=== PATIENT | male | born 1975 | race Caucasian/White ===

== ENCOUNTER 2017-10-17 08:23 | Inpatient (IN) | payer MEDICAID ==
[~2017-10-17 08:23] MED LIST: cefOXitin 2 GM Vial ONE
[2017-10-17] MEDS ORDERED: Scopolamine 1.5 MG Transdermal Patch TOP SCH (08:45)
[2017-10-17] MEDS ORDERED: Acetaminophen 500 MG Tab PO ONE (08:45)
[2017-10-17] MEDS ORDERED: Gabapentin 300 MG Cap PO ONE (08:45)
[2017-10-17] MEDS ORDERED: Celecoxib 200 MG Cap PO ONE (08:45)
[2017-10-17] MEDS ORDERED: Dextrose 5%-Lactated Ringers 1,000 ML IV SCH (09:15)
[2017-10-17] MEDS ORDERED: Albuterol/Ipratropium 3.0-0.5 MG/3 ML Neb Soln NEB ONE (09:45)
[2017-10-17] MEDS ORDERED: Propofol 200 MG/20 ML SDV ONE ×2 (11:29→13:23)
[2017-10-17] MEDS ORDERED: Midazolam 1 MG/ML 2 ML SDV ONE (11:29)
[2017-10-17] MEDS ORDERED: Ondansetron 4 MG/2 ML SDV ONE (11:29)
[2017-10-17] MEDS ORDERED: Dexamethasone 4 MG/ML SDV ONE (11:29)
[2017-10-17] MEDS ORDERED: Rocuronium 50 MG/5 ML Vial ONE ×2 (11:29→13:37)
[2017-10-17] MEDS ORDERED: Glycopyrrolate 0.2 MG/ML 5 ML MDV ONE (11:29)
[2017-10-17] MEDS ORDERED: Succinylcholine 200 MG/10 ML MDV ONE (11:29)
[2017-10-17] MEDS ORDERED: Neostigmine Methylsulfate 1 MG/ML 5 ML Syringe ONE (11:29)
[2017-10-17] MEDS ORDERED: Lidocaine 2% 100 MG/5 ML Syringe IVPUSH ONE (11:30)
[2017-10-17] MEDS ORDERED: Ketamine 500 MG/5 ML MDV IV SCH (11:30)
[2017-10-17] MEDS ORDERED: Ropivacaine 60 ML, Dexamethasone 8 MG, EPINEPHrine 0.4 MG, Sodium Chloride 0.9% 17.6 ML NERVRT SCH ×4 (11:30)
[2017-10-17] MEDS ORDERED: Lactated Ringers 1,000 ML ONE ×2 (11:37→14:34)
[2017-10-17] MEDS: cefOXitin 2 GM in Premix Bag 1 BAG IV ONE ×2 (13:01→17:08)
[2017-10-17] MEDS ORDERED: fentaNYL 250 MCG/5 ML SDV ONE (13:58)
[2017-10-17] MEDS: Coagulation Factor VIIa Recombinant (per MCG) 2 MG Vial IVPUSH ONE ×2 (15:17→17:21)
[2017-10-17] MEDS ORDERED: Naloxone 0.4 MG/ML SDV ONE (15:29)
[2017-10-17] MEDS: Insulin Aspart 100 Units/ML 3 ML Pen SUBCUT PRN ×2 (15:57→21:33)
[2017-10-17] MEDS ORDERED: Labetalol 20 MG/4 ML Syringe IVPUSH PRN (16:00)
[2017-10-17] MEDS ORDERED: Metoclopramide 10 MG/2 ML SDV IVPUSH PRN (16:00)
[2017-10-17] MEDS ORDERED: Glucagon,Human Recombinant 1 MG Vial IM PRN (16:00)
[2017-10-17] MEDS ORDERED: 50% Dextrose in Water 50 ML Syringe IVPUSH PRN (16:00)
[2017-10-17] MEDS ORDERED: diphenhydrAMINE 50 MG/ML SDV IVPUSH PRN (16:00)
[2017-10-17] MEDS ORDERED: Albuterol/Ipratropium 3.0-0.5 MG/3 ML Neb Soln INH PRN (16:00)
[2017-10-17] MEDS ORDERED: Ondansetron 4 MG/2 ML SDV IVPUSH PRN (16:00)
[2017-10-17] MEDS: Lidocaine 0.4%/D5W 2 GM/500 ML BAG IV SCH (17:08)
[2017-10-17] MEDS: Pantoprazole 40 MG Vial IVPUSH SCH (17:32)
[2017-10-17] MEDS: Acetaminophen Soln 650 MG/20.3 ML UD Cup PO SCH (17:34)
[2017-10-17] MEDS ORDERED: MVI, Adult with Vitamin K 10 ML, Thiamine 200 MG, Chromium/Copper/Mang/Selen/Zn 1 ML in... IV SCH ×4 (18:00)
[2017-10-17] MEDS: cefOXitin 2 GM in Sodium Chloride 0.9% 50 ML IV SCH (19:32)
[2017-10-17] MEDS: hydrOXYzine HCl 100 MG/2 ML SDV IM PRN (19:32)
[2017-10-17] MEDS ORDERED: Insulin Detemir 100 Units/ML 3 ML Pen SUBCUT ONE (21:00)
[2017-10-17] MEDS: Heparin Sodium 5,000 Units/ML Vial SUBCUT SCH (21:33)
[2017-10-17] MEDS: Gabapentin 250 MG/5 ML Solution ML 470 ML Bottle PO SCH (21:37)
[2017-10-17] MEDS: Albuterol/Ipratropium 3.0-0.5 MG/3 ML Neb Soln INH SCH (21:39)
[2017-10-18] MEDS: Dextrose 5%-Lactated Ringers 1,000 ML IV SCH ×2 (00:09→05:36)
[2017-10-18] MEDS: Acetaminophen Soln 650 MG/20.3 ML UD Cup PO SCH ×4 (00:10→18:17)
[2017-10-18] MEDS: cefOXitin 2 GM in Sodium Chloride 0.9% 50 ML IV SCH ×4 (01:55→19:48)
[2017-10-18] MEDS ORDERED: Iohexol 647 MG/ML 50 ML SDV PO PRN (03:40)
[2017-10-18] MEDS: Lidocaine 0.4%/D5W 2 GM/500 ML BAG IV SCH (03:55)
[2017-10-18] MEDS: Insulin Aspart 100 Units/ML 3 ML Pen SUBCUT PRN (04:33)
[2017-10-18] MEDS: Celecoxib 200 MG Cap PO SCH (07:57)
[2017-10-18] MEDS: Gabapentin 250 MG/5 ML Solution ML 470 ML Bottle PO SCH ×3 (08:12→20:01)
[2017-10-18] MEDS: Heparin Sodium 5,000 Units/ML Vial SUBCUT SCH ×2 (08:12→20:01)
[2017-10-18] MEDS: SCOPOLAMINE PATCH CHECK TOP SCH (08:12)
[2017-10-18] MEDS ORDERED: Lactated Ringers 1,000 ML IV SCH (09:30)
[2017-10-18] MEDS: Tiotropium Inhaler 18 MCG Inhalation Powder Cap Kit of 5 INH SCH (10:12)
[2017-10-18] MEDS: Formoterol/Mometasone 200-5 MCG 8.8 GM Inhaler IH SCH ×2 (10:12→20:02)
[2017-10-18] MEDS: lamoTRIgine 25 MG Tab PO SCH (10:15)
[2017-10-18] MEDS: Lisinopril 5 MG Tab PO SCH (10:15)
[2017-10-18] MEDS: OLANZapine 5 MG Tab PO SCH ×3 (10:16→23:58)
[2017-10-18] MEDS: metFORMIN 500 MG/5 ML PO SCH ×2 (10:18→18:17)
[2017-10-18] MEDS: Albuterol/Ipratropium 3.0-0.5 MG/3 ML Neb Soln INH SCH ×3 (13:59→21:05)
[2017-10-18] MEDS ORDERED: MVI, Adult with Vitamin K 10 ML, Thiamine 200 MG, Chromium/Copper/Mang/Selen/Zn 1 ML in... IV SCH ×4 (16:00)
[2017-10-18] MEDS: Pantoprazole 40 MG Vial IVPUSH SCH (18:17)
[2017-10-18] MEDS: COLESTIPOL 1 GM PO SCH (20:02)
[2017-10-18] MEDS: Zolpidem 5 MG Tab PO PRN (21:05)
[2017-10-18] MEDS: hydrOXYzine HCl 100 MG/2 ML SDV IM PRN (21:22)
[2017-10-19] MEDS: Acetaminophen Soln 650 MG/20.3 ML UD Cup PO SCH ×4 (00:11→17:41)
[2017-10-19] MEDS: cefOXitin 2 GM in Sodium Chloride 0.9% 50 ML IV SCH ×2 (03:16→08:12)
[2017-10-19] MEDS ORDERED: Sodium Chloride 0.9% 500 ML IV SCH (05:45)
[2017-10-19] MEDS: Formoterol/Mometasone 200-5 MCG 8.8 GM Inhaler IH SCH ×2 (08:00→21:03)
[2017-10-19] MEDS: Celecoxib 200 MG Cap PO SCH (08:01)
[2017-10-19] MEDS ORDERED: Ondansetron 4 MG/2 ML SDV IVPUSH PRN (08:07)
[2017-10-19] MEDS: Gabapentin 250 MG/5 ML Solution ML 470 ML Bottle PO SCH ×3 (08:10→21:02)
[2017-10-19] MEDS ORDERED: Acetaminophen 160 MG Tab,Disintegrating PO PRN (08:15)
[2017-10-19] MEDS ORDERED: Acetaminophen Soln 650 MG/20.3 ML UD Cup PO PRN (08:15)
[2017-10-19] MEDS: Albuterol/Ipratropium 3.0-0.5 MG/3 ML Neb Soln INH SCH ×4 (08:17→21:03)
[2017-10-19] MEDS ORDERED: Cyanocobalamin (Vitamin B12) 1,000 MCG/ML SDV IM ONE (09:00)
[2017-10-19] MEDS: metFORMIN 500 MG/5 ML PO SCH (09:25)
[2017-10-19] MEDS: lamoTRIgine 25 MG Tab PO SCH (11:22)
[2017-10-19] MEDS: Heparin Sodium 5,000 Units/ML Vial SUBCUT SCH ×2 (11:22→21:03)
[2017-10-19] MEDS: SCOPOLAMINE PATCH CHECK TOP SCH (11:22)
[2017-10-19] MEDS: Lisinopril 5 MG Tab PO SCH (11:23)
[2017-10-19] MEDS: Tiotropium Inhaler 18 MCG Inhalation Powder Cap Kit of 5 INH SCH (11:24)
[2017-10-19] MEDS: COLESTIPOL 1 GM PO SCH ×2 (11:35→21:03)
[2017-10-19] MEDS: Pantoprazole 40 MG Vial IVPUSH SCH (17:40)
[2017-10-19] MEDS: OLANZapine 5 MG Tab PO SCH (21:04)
[2017-10-19] MEDS: Zolpidem 5 MG Tab PO PRN (21:07)
[2017-10-20] MEDS: Acetaminophen Soln 650 MG/20.3 ML UD Cup PO SCH ×2 (00:14→06:13)
[2017-10-20] MEDS: Heparin Sodium 5,000 Units/ML Vial SUBCUT SCH (08:32)
[2017-10-20] MEDS: Celecoxib 200 MG Cap PO SCH (08:33)
[2017-10-20] MEDS: Formoterol/Mometasone 200-5 MCG 8.8 GM Inhaler IH SCH (11:05)
[2017-10-20] MEDS: lamoTRIgine 25 MG Tab PO SCH (11:05)
[2017-10-20] MEDS: Lisinopril 5 MG Tab PO SCH (11:05)
[2017-10-20] MEDS: Albuterol/Ipratropium 3.0-0.5 MG/3 ML Neb Soln INH SCH (11:05)
[2017-10-20] MEDS: COLESTIPOL 1 GM PO SCH (11:06)
[2017-10-20] MEDS: Gabapentin 250 MG/5 ML Solution ML 470 ML Bottle PO SCH (11:06)
[2017-10-20] MEDS: Tiotropium Inhaler 18 MCG Inhalation Powder Cap Kit of 5 INH SCH (11:06)
--- NOTE | 2017-10-21 08:47 | CR ---
UGI wo KUB HISTORY: eval R -Y GBP FINDINGS: After administration of oral contrast, upright views were obtained. Post operative changes gastric bypass. Surgical drains in place. No evidence for leak. Contrast passes freely into proximal small bowel loops. IMPRESSION: No evidence for leak or obstruction.
--- NOTE | 2017-10-21 10:50 | PN ---
DATE OF SERVICE: 10/18/2017 The patient is postop day 1 from a laparoscopic gastric bypass. No major problems were noted overnight. Blood sugars are running in the low 200s. I think we will hold the Lantus at this point and try him on metformin b.i.d. We advised he go up to step-2 diet today and maximize activity and work with pulmonary toilet. Will be transferred to the 2nd floor as well. Jake Keith MD /[id number]
--- NOTE | 2017-10-21 11:02 | PN ---
DATE OF SERVICE: 10/19/2017 The patient is postop day #2 from a laparoscopic Meg-en-Y gastric bypass. Blood sugars have come down quite dramatically, running in the low 100s on metformin only. Given this, we will discontinue the metformin today. Otherwise, maximize activity and work with pulmonary toilet and most likely be ready for discharge home tomorrow. Jake Keith MD /[id number]
--- NOTE | 2017-10-21 12:07 | DISCH ---
FINAL DIAGNOSES: 1. Morbid obesity. 2. Marked hepatomegaly. 3. 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 SECONDARY DIAGNOSIS: 1. Hyperlipidemia. 2. Asthma. 3. Hypertension. 4. Type 2 diabetes mellitus. 5. Obstructive sleep apnea. 6. Irritable bowel syndrome. 7. Chronic hepatitis C (most recent testing showed lack of hepatitis C virus status post antiviral treatment). OPERATIVE PROCEDURE: Done on 10/17/17, laparoscopic Meg-en-Y gastric bypass with long limb gastroenterostomy with liver biopsy and small bowel resection to facilitate mobility of jejunojejunostomy. SUMMARY: This is a 41-year-old male presenting with longstanding morbid obesity and increasingly significant comorbidities. After preoperative evaluation and discussion, he wished to proceed with a gastric bypass procedure. Potential risks of the procedure including bleeding, infection, leaks from various GI tract closures, problems with bowel obstruction over time were all reviewed, and the patient wishes to proceed. On the date of admission, the patient underwent a laparoscopic Meg-en-Y gastric bypass and marked hepatomegaly. Liver biopsies were obtained and because of the thickened mesentery, the small bowel was felt to be poorly immobile and the standard jejunojejunostomy was accomplished. Given this, some of the biliopancreatic limb was resected, which allowed more mobility of the jejunojejunostomy and tension-free gastrojejunostomy. Postoperatively, the patient has done quite well. Diabetes appears to be already essentially getting into remission. Over the last 24 hours, he has been off any insulin or oral agents and the blood sugars have been running between 100 and 129. At this point, he will be discharged home. We will continue his medications for the most part as preoperatively, otherwise, he will hold the insulin. He will be instructed to take the Neurontin at 400 mg t.i.d. x2 weeks rather than 1200 mg at bedtime and otherwise maintain a blood sugar log to bring to his appointment. He will be instructed to continue with CPAP as preoperatively and follow up with Erica Landa at [facility] on 10/28/17.
--- NOTE | 2017-10-27 13:53 | OR ---
DATE OF PROCEDURE: 10/17/2017 PREOPERATIVE DIAGNOSIS: Morbid obesity. POSTOPERATIVE DIAGNOSES: 1. Morbid obesity. 2. Marked hepatomegaly. 3. Marked immobility of small bowel secondary to fat-laden mesentery. OPERATIVE PROCEDURE: 1. Laparoscopic Meg-en-Y gastric bypass with long limb gastroenterostomy (20521). 2. Ortiz-Cut needle liver biopsy (15139). 3. Small bowel resection to facilitate mobility of jejunojejunostomy to allow tension-free gastrojejunostomy (83727). ANESTHESIA: General. EMERGENCY OPERATOR: Erica Landa PA-C INDICATIONS FOR PROCEDURE: This is a 41-year-old male presenting with a longstanding morbid obesity and increasingly significant comorbidities. After preoperative evaluation and discussion, he wished to proceed with a gastric bypass procedure. Potential risks including bleeding, infection, leaks from various GI tract closures, problems with bowel obstruction over time, as well as possibility of cardiopulmonary or hemorrhagic complications leading to were all discussed, and the patient wishes to proceed. DETAILS OF PROCEDURE: The patient was taken to the operating room and after general endotracheal anesthesia was induced, placed in a lithotomy position and the orogastric tube was placed and the abdomen prepped and draped. At 15 cm inferior and 5 cm left of xiphoid process, transverse incision was made. The peritoneal cavity entered under direct vision with Optiview trocar and inflated to 15 mmHg pressure with CO2. Laparoscope was then reinserted. No underlying trocar insertion site injuries were seen. Following this, bilateral subcostal transversus abdominis plane blocks were placed with a direct visualization of the needle in the correct location and the standard injectate placed. Following this, 5 additional trocars were placed across the upper and mid abdomen, and general exploration was undertaken. The patient was noted to have marked hepatomegaly with liver volume being roughly 2 to 3 times normal, liver grossly fatty infiltrated. Ortiz-Cut needle biopsies were obtained from the left lobe of the liver. Minimal bleeding from biopsy sites was controlled with electrocautery. The omentum was then divided in the midline up to the level of the transverse colon. This allowed identification of the small bowel to the ligament of Treitz. The small bowel was then traced out 225 cm distal to that point, where it was divided transversely with a ASHLEY stapler. The small bowel was then traced out an additional 150 cm, where the jqox-ex-ikzu enteroenterostomy was accomplished with internal firing of the Endo-ASHLEY 60 mm stapler. The common opening was then closed transversely with the same stapler, angles anastomosed, and the mesenteric defect approximated with some 0 Ethibond stitch, along with 4 mL of fibrin sealant. The divided end of the Meg limb was then from the mesentery for a few centimeters, which allowed an antecolic positioning of the Meg limb up to the level of the gastroesophageal junction without tension. Prior to formation of the jejunojejunostomy, it was noted that the patient had a very fat- laden small bowel mesentery, making the small bowel quite immobile. This would likely create a problem with too much tension at the level of the gastrojejunostomy. Given this, roughly 15 cm of the biliopancreatic limb was resected with it being divided with ASHLEY stapler and underlying mesenteric divided with Harmonic scalpel prior to the formation of jejunojejunostomy. This allowed a marked improved mobility of that anastomosis. The liver was then retracted anteriorly. The patient was noted to have no significant hiatal hernia. The gastrointestinal balloon catheter was inflated to 15 mL and pulled up snugly against the EG junction. The gastric wall over the apex balloon was then marked with electrocautery and balloon catheter deflated and pulled up from the esophagus. The lesser omental tissue adjacent to the gastric cardia was then incised, allowing dissection behind the stomach at that level. The stomach was quite thickened, and we opted, for the first 2 firings of the pouch formation, to use ASHLEY black loads. Two additional purple loads were then used to complete the pouch. At that point, both staple lines were inspected and found to be intact. The anvil of a 25 mm EEA stapler was attached to a Pitt sump type tube. The latter was brought down through the mouth and taken out through a small opening of the gastric pouch, allowing the anvil likewise to be pulled down to within the gastric pouch. The divided end of the Meg limb was then opened, and the main body of the EEA stapler was passed several centimeters into the lumen of the small bowel, brought up the anvil and united with it, thus creating the gastrojejunostomy. Upon removal of the stapler, double donuts of mucosa were noted within it. The small bowel was closed off with a vascular staple line. Gastrojejunostomy was then reinforced with some 3-0 Vicryl seromuscular stitch, along with fibrin sealant. The leak test was accomplished with injection of 120 mL of air in the gastric pouch while submerged with cefoxitin-containing saline solution. No leaks were identified. A single Eyal-Robledo drain was then placed adjacent to the gastrojejunostomy and positioned from there up into the splenic fossa and taken out through the left lateral trocar site. With no further problems noted, trocars were removed and the peritoneal cavity deflated. The incision was closed with 4-0 Vicryl skin stitch, and the drain was likewise affixed with a 4-0 Vicryl stitch. The patient was taken to the recovery room in satisfactory condition. Physician volunteer assistant, Erica Landa, played an essential role in assisting in this case, helping to position the patient, retract structures as needed, as well as suturing and cutting sutures when indicated. Her presence improved patient safety and decreased the operative time. Jake Keith MD /[id number]
== END 2017-10-20 11:50 | disposition home or self-care (01) | DRG 621 ==
LOC: JP.SDSSCHI 08:23 → JP.SDS 08:23 → EDSTATUS 13:30 → JP.ICU 16:40 → JP.2SS 10-18 14:15
PROVIDERS: ADMIT Surgery; ATTEND Surgery
PROC: 0D164ZA Bypass Stomach to Jejunum, Percutaneous Endoscopic Approach (ICD-10-PCS; principal; 2017-10-17)
PROC: 0FB24ZX Excision of Left Lobe Liver, Percutaneous Endoscopic Approach, Diagnostic (ICD-10-PCS; 2017-10-17)
PROC: 3E0T3BZ Introduction of Anesthetic Agent into Peripheral Nerves and Plexi, Percutaneous Approach (ICD-10-PCS; 2017-10-17)
PROC: 0DB94ZX Excision of Duodenum, Percutaneous Endoscopic Approach, Diagnostic (ICD-10-PCS; 2017-10-17)
DX: E66.01 Morbid (severe) obesity due to excess calories (principal); Z68.43 Body mass index [BMI] 50.0-59.9, adult; F31.9 Bipolar disorder, unspecified; B18.2 Chronic viral hepatitis C; J44.9 Chronic obstructive pulmonary disease, unspecified; E11.9 Type 2 diabetes mellitus without complications; Z79.4 Long term (current) use of insulin; M19.90 Unspecified osteoarthritis, unspecified site; K21.9 Gastro-esophageal reflux disease without esophagitis; K58.0 Irritable bowel syndrome with diarrhea; Z87.891 Personal history of nicotine dependence; Z88.8 Allergy status to other drugs, medicaments and biological substances; Z79.52 Long term (current) use of systemic steroids; R16.0 Hepatomegaly, not elsewhere classified; K59.8 Other specified functional intestinal disorders; K76.0 Fatty (change of) liver, not elsewhere classified; E78.5 Hyperlipidemia, unspecified; I10 Essential (primary) hypertension; G47.33 Obstructive sleep apnea (adult) (pediatric)
CPT/HCPCS: 36415; 74240; 74240-26; 82962; 86850; 86900; 86901; 88307; 88313; 93005; 94640; A9270-GY; C9113; J0171; J0330; J0694; J1100; J1644; J2001; J2250; J2310; J2405; J2704; J2710; J2795; J3010; J3410; J3411; J3420; J7030; J7040; J7042; J7050; J7120; J7189; J7620; Q9967